=== PATIENT | female | born 1940 | race Caucasian/White ===

== ENCOUNTER 2023-04-13 10:42 | Outpatient (REF) | payer SELFPAY | END 2023-04-13 10:43 | disposition home or self-care (01) | LOC: HO.HAP 10:42 | PROVIDERS: Visit Provider Internal Medicine | DX: Z13.89 Encounter for screening for other disorder (principal) ==

== ENCOUNTER 2023-04-13 10:59 | Outpatient (REF) | payer SELFPAY | END 2023-04-13 11:00 | disposition home or self-care (01) | LOC: HO.HAP 10:59 | PROVIDERS: Visit Provider Internal Medicine | DX: Z13.89 Encounter for screening for other disorder (principal) ==

== ENCOUNTER 2023-04-22 08:46 | Outpatient (REF) | payer SELFPAY | END 2023-04-22 08:47 | disposition home or self-care (01) | LOC: HO.HAP 08:46 | PROVIDERS: Visit Provider Internal Medicine | DX: Z13.89 Encounter for screening for other disorder (principal) ==

== ENCOUNTER 2024-08-11 11:57 | Outpatient (REF) | payer SELFPAY | END 2024-08-11 11:58 | disposition home or self-care (01) | LOC: HO.HAP 11:57 | PROVIDERS: Visit Provider Internal Medicine | DX: Z13.89 Encounter for screening for other disorder (principal) ==

== ENCOUNTER 2024-11-16 11:02 | Outpatient (REF) | payer SELFPAY | END 2024-11-16 11:03 | disposition home or self-care (01) | LOC: HO.HAP 11:02 | PROVIDERS: Visit Provider Physician Assistant Medical | DX: Z13.89 Encounter for screening for other disorder (principal) ==

== ENCOUNTER 2025-09-22 12:06 | Outpatient (REF) | payer SELFPAY | END 2025-09-22 12:07 | disposition home or self-care (01) | LOC: HO.HAP 12:06 | PROVIDERS: Visit Provider Internal Medicine | DX: Z13.89 Encounter for screening for other disorder (principal) ==

== ENCOUNTER 2025-10-10 10:04 | Outpatient (REF) | payer SELFPAY ==
--- OUTSIDE RECORDS SUMMARY | 2025-10-10 11:22 | XMS_ITS ---
Author Name [facility] Organization Unknown History of Medication Use Medication Directions Dispensed Refills Start Date End Date Stat solifenacin (VESICARE) 5 mg tablet Take 1 tablet (5 mg total) by mouth 1 (one) time each day. Swallow tablet whole; do not crush, chew, or split. 03/13/2025 active simvastatin (ZOCOR) 20 mg tablet TAKE 1 TABLET BY MOUTH AT BEDTIME 12/16/2024 active omeprazole (PriLOSEC) [address] capsule TAKE 1 CAPSULE BY MOUTH DAILY 11/29/2024 active Myrbetriq 50 mg tablet extended release 24 hr 24 hr tablet Take 1 tablet (50 mg total) by mouth 1 (one) time each day. 11/16/2024 active donepeziL (ARICEPT) 10 mg tablet TAKE 1 TABLET BY MOUTH AT BEDTIME 10/12/2024 active Stimulant Laxative Plus 8.6-50 mg per tablet Take 1 tablet by mouth 2 (two) times a day if needed. 01/11/2024 active fluticasone propionate (FLONASE) 50 mcg/actuation nasal spray Administer 2 sprays into each nostril 1 (one) time each day. 01/04/2024 active acetaminophen (TYLENOL) 500 mg tablet Take 1 tablet (500 mg total) by mouth. 12/15/2023 active ibuprofen (ADVIL,MOTRIN) 800 mg tablet Take 1 tablet (800 mg total) by mouth every 8 (eight) hours if needed. 12/15/2023 active polyethylene glycol (PEG) 17 gram/dose oral powder Take 17 g by mouth 1 (one) time. 12/15/2023 active betamethasone, augmented, (DIPROLENE-AF) 0.05 % cream Apply to affected areas up to twice a day sparingly. Do not use this medication for more than 2 weeks straight. 01/19/2023 active aspirin 81 mg EC tablet Take 81 mg by mouth daily. active calcium carbonate (CALCIUM ORAL) Take by mouth. active cholecalciferol (VITAMIN D-3) 25 mcg (1,000 unit) tablet Take 1,000 Units by mouth daily. active docusate sodium (COLACE) 100 mg capsule Take 1 capsule (100 mg total) by mouth 2 (two) times a day. active Allergies Allergen Reaction Severity Comment Documented Date Source Statu s CEFAZOLIN 09/22/2017 [facility] active Problems Problem Status Onset Date Problem Type Date of Resoluti on Source Mixed hyperlipidemia active 2006-12-23 ProblemAct [facility] Vaginal enterocele active 2019-06-23 ProblemAct [facility] Mild vascular dementia ([facility] V24, [facility] V28) active 2023-01-19 ProblemAct [facility] Vulvar abscess active 2019-11-15 ProblemAct [facility] Subjective memory complaints active 2022-07-09 ProblemAct [facility] Large hiatal hernia active 2022-07-10 ProblemAct [facility] Osteoporosis active 2018-10-14 ProblemAct [facility] Breast cancer ([facility] V24, [facility] V28) active 2015-05-10 ProblemAct [facility] Esophageal reflux active 2005-10-16 ProblemAct [facility] Eczema active 2023-01-19 ProblemAct [facility] Medical orders for life-sustaining treatment ([facility]) form in chart active 2025-01-17 ProblemAct [facility] Alopecia areata totalis active 2013-02-22 ProblemAct [facility] Pain in joint, ankle and foot active 2005-10-16 ProblemAct [facility] Immunizations Vaccine Date Source Lot Number Status Pneumococcal conjugate 20 va lent (Prevnar 20, PCV 20) 2mo and older 01/17/2025 [facility] [id number] comple lucila Tdap Tetanus diptheria acell ular pertussis (Boostrix; Adacel) 7yo and older 01/17/2025 [facility] [id number] completed Influenza trivalent, 0.5mL ( Fluad) 65yo and older 08/23/2024 [facility] [id number] completed Influenza trivalent, 0.5mL ( Fluad) 65yo and older 11/19/2023 [facility] [id number] completed Influenza trivalent, 0.5mL ( Fluad) 65yo and older 09/22/2023 [id number] completed Influenza trivalent, 0.5mL ( Fluad) 65yo and older 09/02/2022 [facility] [id number] completed Influenza trivalent, 0.5mL ( Fluad) 65yo and older 09/30/2021 [facility] [id number] completed Moderna SARS-CoV-2 COVID-19, mRNA, LNP-S, preservative free 09/30/2021 [facility] [id number] completed Moderna SARS-CoV-2 COVID-19, mRNA, LNP-S, preservative free 01/09/2021 [facility] [id number] completed Moderna SARS-CoV-2 COVID-19, mRNA, LNP-S, preservative free 12/12/2020 [facility] [id number] completed Influenza trivalent, 0.5mL, preservative free (Fluarix; FluLaval; Fluzone) ages 6mo and older (Afluria) 3 years and older 07/19/2020 [facility] [id number] completed Influenza trivalent, 0.5mL ( Fluad) 65yo and older 09/08/2019 [facility] [id number] completed Influenza trivalent, 0.5mL ( Fluad) 65yo and older 07/23/2018 [facility] [id number] completed Influenza Quadravalent, MDCK , 0.5ml, with preservative (Flucelvax) 6mo and older 08/23/2017 [facility] [id number] completed Influenza trivalent, 0.5mL, preservative free (Fluarix; FluLaval; Fluzone) ages 6mo and older (Afluria) 3 years and older 09/11/2016 [facility] [id number] completed Pneumococcal conjugate 13 va lent (Prevnar 13, PCV13) 2mo and older 05/22/2016 [facility] [id number] complet ed Influenza trivalent, 0.5mL, preservative free (Fluarix; FluLaval; Fluzone) ages 6mo and older (Afluria) 3 years and older 07/18/2015 [facility] [id number] completed Influenza trivalent, 0.5mL, preservative free (Fluarix; FluLaval; Fluzone) ages 6mo and older (Afluria) 3 years and older 08/16/2014 [facility] [id number] completed Influenza trivalent, 0.5mL, preservative free (Fluarix; FluLaval; Fluzone) ages 6mo and older (Afluria) 3 years and older 08/09/2013 [facility] [id number] completed Influenza trivalent, 0.5mL, preservative free (Fluarix; FluLaval; Fluzone) ages 6mo and older (Afluria) 3 years and older 08/22/2012 [facility] [id number] completed Zoster Live 08/18/2011 [facility] [id number] completed Influenza trivalent, 0.5mL, preservative free (Fluarix; FluLaval; Fluzone) ages 6mo and older (Afluria) 3 years and older 08/08/2011 [facility] [id number] completed Influenza trivalent, 0.5mL, preservative free (Fluarix; FluLaval; Fluzone) ages 6mo and older (Afluria) 3 years and older 08/15/2010 [facility] [id number] completed H1N1 Inj Preservative Free 12/07/2009 [facility] [id number] completed Influenza trivalent, 0.5mL, preservative free (Fluarix; FluLaval; Fluzone) ages 6mo and older (Afluria) 3 years and older 08/07/2009 [facility] [id number] completed Influenza trivalent, 0.5mL, preservative free (Fluarix; FluLaval; Fluzone) ages 6mo and older (Afluria) 3 years and older 08/30/2008 [facility] [id number] completed Influenza trivalent, 0.5mL, preservative free (Fluarix; FluLaval; Fluzone) ages 6mo and older (Afluria) 3 years and older 08/29/2007 [facility] [id number] completed Pneumococcal polysaccharide 23 valent (Pneumovax 23) 2yo and older 11/18/2006 [facility] [id number] com pleted Td Tetanus diptheria (Tdvax) 7yo and older 11/18/2006 [facility] [id number] completed Influenza trivalent, 0.5mL, preservative free (Fluarix; FluLaval; Fluzone) ages 6mo and older (Afluria) 3 years and older 10/20/2006 [facility] [id number] completed Influenza trivalent, 0.5mL, preservative free (Fluarix; FluLaval; Fluzone) ages 6mo and older (Afluria) 3 years and older 09/02/2005 [facility] completed Td Tetanus diptheria (Tdvax) 7yo and older 11/09/1994 [facility] completed Care Team Organization Name Specialty Phone Email Start Date End Da herve [facility] ACO 06/28/2025 [facility] Dixon Pastrana [facility] 09/16/2022
--- OUTSIDE RECORDS SUMMARY | 2025-10-10 11:22 | XMS_ITS | Encounter Summary ---
Author Organization [facility] Address [address] [place] [address] Care Team Providers Care Male Model Name Role Phone Dixon Pastrana Primary Care Provider [phone] Reason for Referral * Consultation (Routine) - Closed Specialty Diagnoses / Procedures Referred By Contriley t Referred To Contact Ophthalmology Diagnoses Nonexudative age-related macular degeneration, right eye, stage unspecified Dixon Pastrana PA [address] [place] [address] Phone: tel: fax: Lars Guardado MD [address] [place] [address] Phone: tel: fax: Referral ID Status Reason Start Date Expiration Date V isits Requested Visits Authorized [id number] Closed Specialty Services Required 09/11/2025 09/11/2026 6 6 Reason for Visit * Reason Onset Date Comments Referral 09/11/2025 Ophthalmology Encounter Details Date Type Department Care Team (Late st Contact Info) Description 09/11/2025 Telephone Adult Medicine [address] [phone] Dixon Pastrana PA [address] [place] [address] Social History Tobacco Use Types Packs/Day Years Used Date Smoking Tobacco: Former Smokeless Tobacco: Never Alcohol Use Standard Drinks/Week Comments No 0 (1 standard drink = 0.6 oz pur e alcohol) Housing Instability Answer Date Recorde d Are you worried that in the next 2 months you may not have stable housing? No 08/18/2025 Food Access & Nutrition Answer Date Rec orded Do you have access to a vari ety of food including fruits and vegetables? Yes 08/18/2025 Health Literacy Answer Date Recorded How often do you need to hav e someone help you when you read instructions, pamphlets, or other written material from your doctor or pharmacy? Never 08/18/2025 Caregiver: How often do you need to have someone help you when you read instructions, pamphlets, or other written material from your doctor or pharmacy? Not on file 08/18/2025 Financial Risk Answer Date Recorded How hard is it for you to pa y for the very basics like food, housing, medical care, and air conditioning / heating? Not very hard 08/18/2025 Transportation Answer Date Recorded Has the lack of transportati on kept you from meetings, work, or from getting things needed for daily living? No Has the lack of transportati on kept you from medical appointments or from getting medications? No 08/18/2025 Social Isolation Answer Date Recorded How often do you feel lonely or isolated from th ose around you? Never 08/18/2025 Food Risk Answer Date Recorded Within the past 12 months we worried whether our food would run out before we got money to buy more. Never true 08/18/2025 Within the past 12 months th e food we bought just didn't last and we didn't have money to get more. Never true 08/18/2025 Dependent Care Answer Date Recorded Do you need help finding or paying for care for your loved ones. For example, child and family counselor or elderly care for an older adult? No 08/18/2025 Education Answer Date Recorded Do you think completing more education or training, like finishing a GED, going to college, or learning a trade, would be helpful for you? N/A 08/18/2025 Employment and Income Answer Date Recor ded During the last four weeks, have you been actively looking for work? No 08/18/2025 Living Situation Answer Date Recorded What is your living situation? Unrecognized valu e 08/18/2025 Comments No Sex and Gender Information Value Date Recorded Sex Assigned at Not on file Legal Sex Female 5:20 PM EST Gender Identity Not on file Sexual Orientation Not on file documented as of this encounter Progress Notes * Piedad Caldera - 09/11/2025 9:08 AM EST What insurance does the patient have today? Payor: [facility] Referrals cannot be processed if the insurance is not accurate. If the insurance listed above is NO BILLING INFORMATION FOUND FOR THIS ENCOUNTER then the patients correct insurance must be obtainedand registered in [facility] or their referral can not be processed. Name of person calling to request this referral? Minerva from [facility] Referred To Provider (Include first and last name): Lars Guardado MD NPI (if known): [id number] Order/Specialty requested Ophthalmology Chief Complaint (Note: This is not a body part or a procedure): H35.3110 Has the patient seen provider for this problem/Dx before? yes Referred To Provider Address: [address] [place] [address] Referred To Provider Referred To Provider Does patient have an appointment scheduled?: yes If yes, what is the date of the appointment?: 09/11/25 Is this a retro request? no Number of visits requested: 6 Is this appointment related to: MVA or worker compensation? no Copied from [facility] #[id number]. Topic: Referral - Request >> Sep 11, 2025 9:03 AM Piedad Lai wrote: Telephone Incoming Contact name: Minerva from [facility] Telephone:[phone] Outcome: contacted Comments: Minerva from [facility] called today asking for a auth to be submitted for a Ophthalmology visit that the patient has for today. documented in this encounter Plan of Treatment Upcoming Encounters Date Type Department Care Team (Late st Contact Info) Description 01/16/2026 10:00 AM EDT Office Visit Adult [address] [address] Dixon Pastrana PA [address] [place] [phone] Scheduled Referrals Name Type Priority Associated Diagnoses Order Schedule Ambulatory referral to Ophthalmology Outpatient Referral Routine Nonexudative age-related macular degeneration, right eye, stage unspecified 1 Occurrences starting 09/11/2025 until 09/11/2026 documented as of this encounter Visit Diagnoses Diagnosis Nonexudative age-related macular degeneration, right eye, stage unspecified- Primary documented in this encounter Additional Health Concerns Assessment Noted Time PHQ-9 Depression Total Score: 0 01/18/20 25 11:58 AM EDT documented as of this encounter Care Teams Male Model Relationship Specialty Start Date End Date Dixon Pastrana PA [address] [place] [address] PCP - General Internal Medicine 04/26/21 documented as of this encounter
--- OUTSIDE RECORDS SUMMARY | 2025-10-10 11:22 | XMS_ITS | Clinical Summary ---
Author Organization [facility] Address [address] [place] [address] Care Team Providers Care Metal Hanging Supervisor Name Role Phone Dixon Pastrana PA-C Primary Care Provider Allergies Active Allergy Reactions Criticality Noted Date Comments Cefazolin 09/22/2017 Medications Medication Sig Dispensed Refills Start Date End Date Status aspirin EC 81 MG tablet Take 81 mg by mouth daily. 0 Active simvastatin (ZOCOR) tablet 20 mg Take 20 mg by mouth every night at bedtime. 0 Active omeprazole (PRILOSEC) 20 MG capsule Take 20 mg by mouth daily. 0 Active Multiple Vitamin (MULTI VITAMIN DAILY PO) Take by mouth. 0 Act keyon CALCIUM PO Take by mouth. 0 Active cholecalciferol (VITAMIN D3) 1000 units tablet Take 1,000 Units by mouth daily. 0 Active Active Problems No known active problems Family History Medical History Relation Name Comments Myocarditis Father Arthritis Maternal Grandmother Arthritis Mother COPD Mother Hyperlipidemia Sister 1 Hypertension Sister 1 Relation Name Status Comments Father Maternal Grandmother Mother Sister 1 Alive Sister 2 Alive Social History Tobacco Use Types Packs/Day Years Used Date Smoking Tobacco: Former Smokeless Tobacco: Never Alcohol Use Standard Drinks/Week Comments No 0 (1 standard drink = 0.6 oz pur e alcohol) Sex and Gender Information Value Date Recorded Sex Assigned at Not on file Gender Identity Not on file Sexual Orientation Not on file Job Start Date Occupation Industry Not on file Not on file Not on file Last Filed Vital Signs Vital Sign Reading Time Taken Comments Blood Pressure 130/67 02/08/2024 11:47 AM EDT Pulse 76 02/08/2024 11:47 AM EDT Temperature 36.3 C (97.4 F) 02/08/2024 11:47 AM EDT Respiratory Rate - - Oxygen Saturation 99% 02/08/2024 11:47 AM EDT Inhaled Oxygen Concentration - - Weight 49 kg (108 lb) 02/08/2024 11:47 AM EDT Height 149.9 cm (4' 11 ) 02/08/2024 11:47 AM EDT Body Mass Index 21.81 02/08/2024 11:47 AM EDT Plan of Treatment Health Maintenance Due Date Last Done Comments COVID-19 Vaccine (#1) 04/13/1941 Depression Screening 1951 Preventative Health Evaluation 1957 Shingrix-Zoster Vaccine (1 of 2) 1989 Fall Risk Assessment 2004 Osteoporosis Screening (DEXA Scan) 2004 DTap / Tdap / Td (1 - Tdap) 11/19/2006 11/18/2006, 0 11/09/1994 RSV Adult > 60+ Yrs or (1 - 1-dose 75+ series) 2014 Influenza Vaccine (#1) 2025 , 09/02/2022, 09/30/2021, Additional history exists Pneumococcal Vaccine Completed 05/22/2016, 11/18/19 07 Hepatitis B Vaccines Aged Out No long er eligible based on patient's age to complete this topic RSV Ped < 20 months Aged Out No longe r eligible based on patient's age to complete this topic Care Teams Metal Hanging Supervisor Relationship Specialty Start Date End Date Dixon Pastrana PA-C PCP - General Medical Services 03/03/23
--- OUTSIDE RECORDS SUMMARY | 2025-10-10 11:22 | XMS_ITS | Clinical Summary ---
Author Organization [facility] [address] [place] [address] [place] [phone] Phone Care Team Providers Care Manager Video Name Role Phone Dixon Pastrana Primary Care Provider [phone] Allergies Active Allergy Reactions Criticality Noted Date Comments Cefazolin 09/22/2017 Medications aspirin 81 mg EC tablet Take 81 mg by mouth daily. Active calcium carbonate (CALCIUM ORAL) Take by mouth. Active cholecalcifero l (VITAMIN D-3) 25 mcg (1,000 unit) tablet Take 1,000 Units by mouth daily. Active multivitamin (MULTIPLE VITAMINS ORAL) Take by mouth. Active acetaminophen (TYLENOL) 500 mg tablet Take 1 tablet (500 mg total) by mouth. 12/15/19 24 Active betamethasone, augmented, (DIPROLENE-AF) 0.05 % cream Apply to affected areas up to twice a day sparingly. Do not use this medication for more than 2 weeks straight. 01/20/20 23 Active fluticasone propionate (FLONASE) 50 mcg/actuation nasal spray Administer 2 sprays into each nostril 1 (one) time each day. 01/04/20 24 Active ibuprofen (ADVIL,MOTRIN) 800 mg tablet Take 1 tablet (800 mg total) by mouth every 8 (eight) hours if needed. 12/15/19 24 Active polyethylene glycol (PEG) 17 gram/dose oral powder Take 17 g by mouth 1 (one) time. 12/15/19 24 Active simvastatin (ZOCOR) 20 mg tablet TAKE 1 TABLET BY MOUTH AT BEDTIME 90 tablet 1 12/16/19 25 Active omeprazole (PriLOSEC) [address] capsule TAKE 1 CAPSULE BY MOUTH DAILY 90 capsule 05/26/20 25 Active donepeziL (ARICEPT) 10 mg tablet TAKE 1 TABLET BY MOUTH AT BEDTIME 90 tablet 1 06/12/20 25 Active Myrbetriq 50 mg 24 hr tablet Take 1 tablet (50 mg total) by mouth 1 (one) time each day. 90 each 1 07/18/20 25 Active solifenacin (VESICARE) 5 mg tablet Take 1 tablet (5 mg total) by mouth 1 (one) time each day. Swallow tablet whole; do not crush, chew, or split. 90 tablet 1 07/18/20 25 Active losartan (Cozaar) 25 mg tablet Take 1 tablet (25 mg total) by mouth 1 (one) time each day. 30 each 5 08/18/20 25 Active docusate sodium (COLACE) 100 mg capsule Take 1 capsule (100 mg total) by mouth 2 (two) times a day if needed for constipation. 60 capsule 5 09/14/20 25 Active docusate sodium (COLACE) 100 mg capsule Take 1 capsule (100 mg total) by mouth 2 (two) times a day. 025 Discontinued(Re order) Stimulant Laxative Plus 8.6-50 mg per tablet Take 1 tablet by mouth 2 (two) times a day if needed. 01/11/20 24 025 Discontinued(Th erapy completed) docusate sodium (COLACE) 100 mg capsule Take 1 capsule (100 mg total) by mouth 2 (two) times a day if needed for constipation. 60 capsule 1 09/14/20 25 025 Discontinued Active Problems Problem Noted Date Diagnosed Date Medical orders for life-sust aining treatment (MOLST) form in chart 01/17/2025 Overview (01/17/2025): MOLST form completed 01/17/2025 Cardiopulmonary resuscitation - attempt resuscitation Ventilation for a patient in respiratory distress - use noninvasive ventilation (CPAP) Transfer to hospital -transfer to hospital Dialysis - undecided Artificial nutrition - no artificial nutrition Artificial hydration - use artificial nutrition but short term only Eczema 01/19/2023 Mild vascular dementia (CMS/HCC V24, CMS/HCC V28 ) 01/19/2023 Assessment & Plan (01/17/2025 12:58 PM EDT): Orders: Lipid panel with reflex to direct LDL; Future Comprehensive metabolic panel; Future CBC and differential; Future Culture urine; Future Urinalysis with reflex microscopic; Future Hemoglobin A1c; Future Large hiatal hernia 07/10/2022 Assessment & Plan (01/17/2025 12:58 PM EDT): Orders: Lipid panel with reflex to direct LDL; Future Comprehensive metabolic panel; Future CBC and differential; Future Culture urine; Future Urinalysis with reflex microscopic; Future Hemoglobin A1c; Future Subjective memory complaints 07/09/2022 Vulvar abscess 11/15/2019 Overview (10/05/2024): Last Assessment & Plan: Expressed today. Encouraged pt to soak BID to complete healing. Will return in 2-3 weeks or sooner prn worsening. Will use Tylenol or ibuprofen for pain. Vaginal enterocele 06/23/2019 Overview (10/05/2024): Last Assessment & Plan: Reviewed findings and possible therapies including observation, pessary and surgical consultation. She was most interested in observation at this time and will call if it is bothering her more. US ordered to confirm nothing abnormal given rapid onset of symptoms. Osteoporosis 10/14/2018 Breast cancer ([facility] V24, [facility] V28) 015 Alopecia areata totalis 02/22/2013 Mixed hyperlipidemia 12/23/2006 Assessment & Plan (01/17/2025 12:58 PM EDT): Orders: Lipid panel with reflex to direct LDL; Future Comprehensive metabolic panel; Future CBC and differential; Future Culture urine; Future Urinalysis with reflex microscopic; Future Hemoglobin A1c; Future Esophageal reflux 10/16/2005 Overview (10/05/2024): Hiatal herniaHiatal hernia on upper gi in 2002; upper GI endoscopy 3.07, performed after initiation of treatment with omeprazole, no esophagitis, no Thorpe's esophagus, no stricture. Moderately large hiatal hernia. CAT scan 2017 confirms large hiatal hernia Pain in joint, ankle and foot 10/16/2005 Overview (10/05/2024): rt ankle fx nov 2004 Encounters Date Type Department Care Team Description 10/06/2025 Results Follow-Up Adult Medicine [address] [phone] Dixon Pastrana PA 10/03/2025 2:00 PM EST Ancillary Procedure [facility] [address] [place] [address] Syncope, unspecified syncope type 09/14/2025 10:00 AM EST Office Visit [address] [phone] Paris Samaniego PA Syncope, unspecified syncope type (Primary Dx); Constipation, unspecified constipation type; Hypertension, unspecified type; Need for prophylactic vaccination and inoculation against influenza 09/11/2025 Telephone Adult Medicine [address] [phone] Dixon Pastrana PA 08/24/2025 Telephone Adult Medicine [address] [phone] Dixon Pastrana PA 08/21/2025 Telephone Adult [address] [phone] Dixon Pastrana PA 08/20/2025 1:18 PM EDT - 08/20/2025 5:53 PM EDT Emergency [facility] Emergency [address] [place] [address] Julio C Miller MD Syncope, unspecified syncope type (Primary Dx) Discharge Disposition: Home or Self Care 08/18/2025 8:30 AM EDT Office Visit Adult [address] [phone] Paris Samaniego PA Mixed hyperlipidemia (Primary Dx); Gastroesophageal reflux disease without esophagitis; 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 (CMS/HCC V24, CMS/HCC V28); Urge incontinence; History of breast cancer; Elevated blood pressure reading 07/18/2025 11:45 AM EDT Office Visit Urogynecology [address] [phone] Payal Allen MD Cervical prolapse (Primary Dx); Urge incontinence; Urinary frequency; Urinary urgency; Nocturnal enuresis; Nocturia from Last 3 Months Immunizations Immunization Administration Dates Next Due H1N1 Inj Preservative Free 12/07/2009 Influenza Quadravalent, MDCK , 0.5ml, with preservative (Flucelvax) 6mo and older 08/23/2017 Influenza trivalent, 0.5mL ( Fluad) 65yo and older 09/14/2025,08/23/2024,11/19/2023,09/22,09/02/2022,09/30/2021,09/08/2019 ,07/23/2018 Influenza trivalent, 0.5mL, preservative free (Fluarix; FluLaval; Fluzone) ages 6mo and older (Afluria) 3 years and older 07/19/2020,09/11/2016,07/18/2015,08/16,08/09/2013,08/22/2012,08/08/2011 ,08/15/2010,08/07/2009,08/30/2008,08/10,10/20/2006,09/02/2005 Moderna SARS-CoV-2 COVID-19, mRNA, LNP-S, preservative free 09/30/2021,01/09/2021,12/12/2020 Pneumococcal conjugate 13 va lent (Prevnar 13, PCV13) 2mo and older 05/22/2016 Pneumococcal conjugate 20 va lent (Prevnar 20, PCV 20) 2mo and older 01/17/2025 Pneumococcal polysaccharide 23 valent (Pneumovax 23) 2yo and older 11/18/2006 Td Tetanus diptheria (Tdvax) 7yo and older 11/18/2006,11/09/1994 Tdap Tetanus diptheria acell ular pertussis (Boostrix; Adacel) 7yo and older 01/17/2025 Zoster Live 08/18/2011 Surgical History Surgery Date Site/Laterality Comments BREAST LUMPECTOMY PROCEDURE:BREAST LUMPECTOMY APPENDECTOMY PROCEDURE:APPENDECTOMY TONSILLECTOMY PROCEDURE:TONSILLECTOMY TONSILLECTOMY PROCEDURE: HISTORICAL TONSILLECTOMY APPENDECTOMY PROCEDURE: UT APPENDECTOMY BREAST LUMPECTOMY PROCEDURE: ---- BREAST LUMP BIOPSY ----; COMMENT: breast cancer BREAST SURGERY 04/06/2015 Right PROCEDURE: UT UNLISTED PROCEDURE BREAST; COMMENT: lumpectomy x2 one week apart DCIS CATARACT EXTRACTION Bilateral PROCEDURE: HISTORICAL CATARACT REMOVAL OTHER SURGICAL HISTORY 12/29/2018 Left PROCEDURE: UT RPR SPIGELIAN HERNIA; COMMENT: laparoscopic OTHER SURGICAL HISTORY 03/21/2024 PROCEDURE: UT COLPOSCOPY CERVIX UPPR/ADJCNT VAGINA W/CERVIX BX; COMMENT: Hysteropexy, colorrhaphy for incontinence Dr. Allen Medical History Medical History Date Comments Breast cancer ([facility] V24, [facility] V28) DX:Breast cancer ([facility]) Osteopenia DX:Osteopenia GERD (gastroesophageal reflu x disease) DX:GERD (gastroesophageal re flux disease) Other psoriasis and similar disorders 10/16/2005 DX:Other psoriasis and similar disorders Esophageal reflux 10/16/2005 DX:Esophageal reflux; COMMENT: hiaatal hernia upper gi in 2002 showed reflux Special screening for malign ant neoplasms, colon 12/17/2006 DX:Special screening for mal ignant neoplasms, colon; COMMENT: Negative colonoscopy 2003, no colon cancer screening needed for 10 years. Osteopenia 01/25/2009 DX:Osteopenia Fracture of ankle 2004 DX:Fracture of ankle; COMMENT: right Rotator cuff tear 2004 DX:Rotator cuf f tear; COMMENT: small supraspinatus tear on right MRI Scoliosis of thoracic spine DX:S coliosis of thoracic spine Alopecia areata totalis 02/22/2013 DX:Alope nubia areata totalis Breast cancer ([facility] V24, [facility] V28) 05/10/2015 DX:Breast cancer ([facility]); COMM ENT: DCIS Breast cancer ([facility] V24, [facility] V28) 05/10/2015 DX:Breast cancer ([facility]) Osteoporosis 10/14/2018 DX:Osteoporosis Hiatal hernia DX:Hiatal hernia Family History Medical History Relation Name Comments Myocarditis Father Arthritis Maternal Grandmother Arthritis Mother COPD Mother Hyperlipidemia Sister 1 Hypertension Sister 1 Colon cancer Neg Hx Relation Name Status Comments Father (Age 54) mi Maternal Grandmother Mother (Age 74) copd Sister 1 Alive Sister 2 Alive Sister 3 Alive Agnieszka, HTN, smo kes, hyperlipidemia as of 02/2012 Sister 4 (Age 70) Nancy, y ounger, drugs & Etoh Social History Tobacco Use Types Packs/Day Years Used Date Smoking Tobacco: Former Smokeless Tobacco: Never Tobacco Cessation:Counseling Given: Not Answered Alcohol Use Standard Drinks/Week Comments No 0 [...] care for your loved ones. For example, childcare center director or elderly care for an older adult? [...] on file Sexual Orientation Not on file Obstetrics History Last Filed Vital Signs Vital Sign Reading Time Taken Comments Blood Pressure 128/69 09/14/2025 10:02 AM EST Pulse 67 09/14/2025 10:02 AM EST Temperature 36.2 C (97.1 F) 09/14/2025 10:02 AM EST Respiratory Rate 15 09/14/2025 10:02 AM EST Oxygen Saturation 99% 09/14/2025 10:02 AM EST Inhaled Oxygen Concentration - - Weight 50.3 kg (111 lb) 09/14/2025 10:02 AM EST Height 152.4 cm (5') 09/14/2025 10:02 AM EST Body Mass Index 21.68 09/14/2025 10:02 AM EST Plan of Treatment Upcoming Encounters Date Type Department Care Team (Late st Contact Info) Description 01/16/2026 10:00 AM EDT Office Visit Adult Medicine [address] [phone] Dixon Pastrana PA [address] [place] [phone] Health Maintenance Due Date Last Done Comments Zoster Vaccines (1 of 2) 2011 08/18/2011 RSV Immunization Adult Patients (1 - 1-dose 75+ series) 2014 Cholesterol Screening (Lipid Panel) 10/17/2022 COVID-19 Vaccine ( season) 2025 12/10/2023, 02/10/2022, 09/30/2021, Additional history exists Falls Risk Assessment 01/17/2026 01/17/2025 Medicare Annual Wellness Visit 01/17/2026 01/17/2025 Social Influencers of Health Screening 08/18/2026 08/18/2025 Hypertension/CHF/CAD Annual BMP Blood Test 08/20/2026 08/20/2025, 03/09/2024 Osteoporosis Screening (Bone Density Screening) 09/27/2028 09/27/2018 DTaP,Tdap,and Td Vaccines (4 - Td or Tdap) 01/17/2035 01/17/2025, 11/18/2006, 11/09/1994 Pneumococcal Vaccine: 50+ Years Completed 01/17/2025, 05/22/2016, 11/18/2006 Depression Screening Completed 09/14/2025 Influenza Vaccine Completed 09/14/2025, , 11/19/2023, Additional history exists HIB Vaccines Aged Out No longer eligi ble based on patient's age to complete this topic HPV Vaccines Aged Out No longer eligi ble based on patient's age to complete this topic Hepatitis A Vaccines Aged Out No long er eligible based on patient's age to complete this topic Hepatitis B Vaccines Aged Out No long er eligible based on patient's age to complete this topic IPV Vaccines Aged Out No longer eligi ble based on patient's age to complete this topic MMR Vaccines Aged Out No longer eligi ble based on patient's age to complete this topic Meningococcal ACWY Vaccine Aged Out N o longer eligible based on patient's age to complete this topic Meningococcal B Vaccine Aged Out No l onger eligible based on patient's age to complete this topic RSV Immunization Patients Under 20 months Aged Out No longer eligible based on patient's age to complete this topic Varicella Vaccines Aged Out No longer eligible based on patient's age to complete this topic Procedures Procedure Name Priority Date/Time Associated Diagnosis Comments CARDIAC HOLTER MONITOR (REPORT GENERATED IN HOUSE) Routine 10/03/2025 1:44 PM EST Syncope, unspecified syncope type ECG ANNOTATED 08/22/2025 XR CHEST 2 VIEWS STAT 08/20/2025 3:[address] HEAD WO CONTRAST STAT 08/20/2025 3 :36 PM EDT HERNANDEZ URINE CULTURE TUBE STAT 08/20/2025 2:33 PM EDT URINALYSIS WITH REFLEX MICROSCOPIC AND CULTURE STAT 08/20/2025 2:33 PM EDT URINALYSIS WITH REFLEX MICROSCOPIC AND CULTURE STAT 08/20/2025 2:33 PM EDT CULTURE URINE STAT 08/20/2025 2:33 PM EDT CBC WITH AUTO DIFFERENTIAL STAT 08/20/2025 1:56 PM EDT PROTHROMBIN TIME WITH INR STAT 08/20/2025 1:56 PM EDT ACTIVATED PARTIAL THROMBOPLASTIN TIME STAT 08/20/2025 1:56 PM EDT B-TYPE NATRIURETIC PEPTIDE STAT 08/20/2025 1:56 PM EDT COMPREHENSIVE METABOLIC PANEL STAT 08/20/2025 1:56 PM EDT TROPONIN I HIGH SENSITIVITY Timed 08/20/2025 1:56 PM EDT MAGNESIUM STAT 08/20/2025 1:56 PM EDT CBC AND DIFFERENTIAL STAT 08/20/2025 1:56 PM EDT ECG 12-LEAD STAT 08/20/2025 1:46 PM EDT DXA BONE DENSITY STUDY 1+ SITS AXIAL SKEL Routine 09/27/2018 1:31 PM EST Other specified disorders of bone density and structure, unspecified site from Last 3 Months or Most Recently Relevant to Health Maintenance Results * CARDIAC HOLTER MONITOR (REPORT GENERATED IN HOUSE) (10/03/2025 1:44 PM EST) Anatomical Region Laterality Modality Cardiac Diagnost ic Narrative 10/04/2025 4:57 PM EST [facility]PART[facility] [address] [facility], [id number], [place] [address] TEL: FAX: Type of test: 24 hour Holter Monitor Date of test: 10/03/25 Ordering provider: SOLOMON Huston Reason for Test: Syncope PVCA Grain Elevator Worker Findings: 1: The predominant rhythm was Normal Sinus Rhythm. 2: Occasional PACs with one atrial pair. Rare PVCs with two couplets. 3: No pauses noted. Longest R-R 1.5 sec. 4: Diary returned with no entries. 5: Leads disconnected at 5:44 am. Total time recorded was 16 hrs 3 mins. Impression: Normal sinus rhythm with no significant atrial or ventricular arrhythmias. No excessive bradycardia or pauses noted. [place] [facility] PROCEDURES F inal Result * ECG-Annotated (08/22/2025) Provider Onbase MD ECG ORDERABLES Final Result * XR Chest 2 Views (08/20/2025 3:49 PM EDT) Anatomical Region Laterality Modality Body Radiographic Eunice ging 08/20/2025 4:29 PM EDT Impressions 08/20/2025 4:32 PM EDT FINDINGS/IMPRESSION: No pneumonia or pulmonary edema. No pleural effusion or pneumothorax. Cardiac silhouette is normal in size. Hiatal hernia. Severe dextroconvex thoracic scoliosis. No acute displaced fracture. -------- FINAL REPORT -------- Dictated By: JOSÉ COBSO Dictated Date: 08/20/2025 16:29 ET Assigned Physician: JOSÉ COBOS Reviewed and Electronically Signed By: JOSÉ COBOS Signed Date: 08/20/2025 16:32 ET Workstation ID: [id number] Transcribed By: Self Edit Transcribed Date: 08/20/2025 16:29 ET Narrative 08/20/2025 4:32 PM EDT XR CHEST 2 VIEWS INDICATION: Chest pain TECHNIQUE: XR CHEST 2 VIEWS COMPARISON: 05/26/2022 Procedure Note José Cobos MD - 08/20/2025 XR CHEST 2 VIEWS INDICATION: Chest pain TECHNIQUE: XR CHEST 2 VIEWS COMPARISON: 05/26/2022 IMPRESSION: FINDINGS/IMPRESSION: No pneumonia or pulmonary edema. No pleural effusionor pneumothorax. Cardiac silhouette is normal in size. Hiatal hernia.Severe dextroconvex thoracic scoliosis. No acute displaced fracture. -------- FINAL REPORT -------- Dictated By: JOSÉ COBOS Dictated Date: 08/20/2025 16:29 ET Assigned Physician: JOSÉ COBOS Reviewed and Electronically Signed By: JOSÉ COBOS Signed Date: 08/20/2025 16:32 ET Workstation ID: [id number] Transcribed By: Self Edit Transcribed Date: 08/20/2025 16:29 ET Julio C Miller MD IMG XR PROCEDURES Final Result * CT Head wo Contrast (08/20/2025 3:36 PM EDT) Anatomical Region Laterality Modality Head and Neck Computed Tomogra phy 08/20/2025 4:09 PM EDT Impressions 08/20/2025 4:12 PM EDT No acute intracranial abnormality -------- FINAL REPORT -------- Dictated By: JOSÉ COBOS Dictated Date: 08/20/2025 16:09 ET Assigned Physician: JOSÉ COBOS Reviewed and Electronically Signed By: JOSÉ COBOS Signed Date: 08/20/2025 16:12 ET Workstation ID: [id number] Transcribed By: Self Edit Transcribed Date: 08/20/2025 16:09 ET Narrative 08/20/2025 4:12 PM EDT PROCEDURE: HEAD CT INDICATION: Altered mental status TECHNIQUE: CT of the head without intravenous contrast. Multiplanar reformats. The examination was performed utilizing dose reduction techniques. Total DLP 809 COMPARISON: 08/09/2024 FINDINGS: No acute territorial infarct, mass effect, or intracranial hemorrhage. Severe scattered periventricular and subcortical white matter hypodensities are most likely related to chronic small vessel ischemic change. Ventricles are stable in size. No hydrocephalus. Visualized paranasal sinuses and mastoid air cells are clear. No scalp hematoma or skull fracture. Bilateral lens implants. Procedure Note José Cobos MD - 08/20/2025 PROCEDURE: HEAD CT INDICATION: Altered mental status TECHNIQUE: CT of the head without intravenous contrast. Multiplanarreformats. The examination was performed utilizing dose reductiontechniques. Total DLP 809 COMPARISON: 08/09/2024 FINDINGS: No acute territorial infarct, mass effect, or intracranial hemorrhage. Severe scattered periventricular and subcortical white matterhypodensities are most likely related to chronic small vessel ischemicchange. Ventricles are stable in size. No hydrocephalus. Visualized paranasal sinuses and mastoid air cells are clear. No scalp hematoma or skull fracture. Bilateral lens implants. IMPRESSION: No acute intracranial abnormality -------- FINAL REPORT -------- Dictated By: JOSÉ COBOS Dictated Date: 08/20/2025 16:09 ET Assigned Physician: JOSÉ COBOS Reviewed and Electronically Signed By: JOSÉ COBOS Signed Date: 08/20/2025 16:12 ET Workstation ID: [id number] Transcribed By: Self Edit Transcribed Date: 08/20/2025 16:09 ET Julio C Miller MD [facility] [place]ED[place] Final Result * (ABNORMAL) Urinalysis with reflex microscopic and culture (08/20/2025 2:33 PM EDT) Pathologist [facility] Specific [place] Urine 1.014 1.003 - 1.030 LAB URINALYSIS - AUTOMATED METHOD 08/20/2025 4:10 PM [facility] pH, Urine 6.0 5.0 - 8.0 pH LAB URINALYSIS - AUTOMATED METHOD 08/20/2025 4:10 PM [facility] Leukocytes, Urine Trace(A) Negative LAB URINALYSIS - AUTOMATED METHOD 08/20/2025 4:10 PM [facility] Nitrite, Urine Negative Negative LAB URINALYSIS - AUTOMATED METHOD 08/20/2025 4:10 PM [facility] Protein, Urine Negative <=Trace mg/dL LAB URINALYSIS - AUTOMATED METHOD 08/20/2025 4:10 PM [facility] Glucose, Urine Negative Negative mg/dL LAB URINALYSIS - AUTOMATED METHOD 08/20/2025 4:10 PM [facility] Ketones, Urine Negative Negative mg/dL LAB URINALYSIS - AUTOMATED METHOD 08/20/2025 4:10 PM [facility] Urobilinogen, Urine 1.0 0.2 - 1.0 mg/dL LAB URINALYSIS - AUTOMATED METHOD 08/20/2025 4:10 PM [facility] Bilirubin, Urine Negative Negative LAB URINALYSIS - AUTOMATED METHOD 08/20/2025 4:10 PM [facility] Blood, Urine Negative Negative LAB URINALYSIS - AUTOMATED METHOD 08/20/2025 4:10 PM [facility] RBC, Urine 3.6 0 - 4 /HPF LAB URINALYSIS - AUTOMATED METHOD 08/20/2025 4:10 PM [facility] WBC, Urine 1.4 0 - 4 /HPF LAB URINALYSIS - AUTOMATED METHOD 08/20/2025 4:10 PM [facility] Squamous Epithelial, Urine 28 0 - 60 /LPF LAB URINALYSIS - AUTOMATED METHOD 08/20/2025 4:10 PM [facility] Bacteria, Urine Negative Negative /HPF LAB URINALYSIS - AUTOMATED METHOD 08/20/2025 4:10 PM [facility] Hyaline Casts, Urine 1.2 0 - 3 /LPF LAB URINALYSIS - AUTOMATED METHOD 08/20/2025 4:10 PM [facility] Urine Urine specimen obtained by clean catch procedure / Unknown Non-blood Collection / Unknown 08/20/2025 2:33 PM EDT 08/20/2025 3:24 PM EDT us Julio C Miller MD LAB URINE ORDERABLES Final Resul t Performing Organization Address City/[facility]/ZIP Co de Phone Number [facility] [address] [place] [address], [place] [phone] * Hernandez urine culture tube (08/20/2025 2:33 PM EDT) [facility] Extra Tube Hold for add-ons. 08/20/2025 5:[address] [facility] Comment:Auto resulted. Urine Urine specimen obtained by clean catch procedure / Unknown Non-blood Collection / Unknown 08/20/2025 2:33 PM EDT 08/20/2025 3:24 PM EDT us Julio C Miller MD LAB URINE ORDERABLES Final Resul t Performing Organization Address [facility] Co de Phone Number [facility] [address] [place] [address], [place] [phone] * Culture urine (08/20/2025 2:33 PM EDT) [facility] Culture, Urine 10,000-49,000 CFU/mL Mixed bacterial morphotypes present suggestive of possible contamination during collection. Suggest appropriate recollection if clinically indicated. 08/21/2025 1:[address] [facility] Urine Urine specimen obtained by clean catch procedure / Unknown Non-blood Collection / Unknown 08/20/2025 2:33 PM EDT 08/20/2025 4:10 PM EDT us Julio C Miller MD LAB MICROBIOLOGY - GENERAL ORDER MJ Final Result Performing Organization Address City/[facility]/ZIP Co de Phone Number [facility] [address] [place] [address], [place] [phone] * Troponin I high sensitivity (08/20/2025 1:56 PM EDT) [facility] High Sensitivity Troponin I 4 <=54 ng/L LAB CHEMISTRY METHOD 08/20/2025 2:[address] [facility] Blood Venous blood specimen / Unknown Venipuncture / Unknown 08/20/2025 1:56 PM EDT 08/20/2025 2:[address] [facility] - 08/20/2025 2:57 PM EDT High levels of biotin in samples may falsely decrease hsTroponin values. Use caution when interpreting hsTroponin results in patients taking biotin who exhibit renal impairment (eGFR <60) or in patients taking more than 20 mg/day of biotin. us Julio C Miller MD LAB BLOOD ORDERABLES Final Resul t [facility] [address] [place] [address], [place] [phone] * (ABNORMAL) CBC auto differential (08/20/2025 1:56 PM EDT) WBC 11.9(H) 4.8 - 10.8 K/mcL LAB HEMETOLOGY METHOD 08/20/2025 2:[facility] RBC 4.80 3.80 - 4.80 M/mcL LAB HEMETOLOGY METHOD 08/20/2025 2:[address] [facility] Hemoglobin 12.8 11.5 - 16.0 g/dL LAB HEMETOLOGY METHOD 08/20/2025 2:[address] [facility] Hematocrit 41.2 35.0 - 47.0 % LAB HEMETOLOGY METHOD 08/20/2025 2:[address] [facility] MCV 86.6 79.0 - 98.0 FL LAB HEMETOLOGY METHOD 08/20/2025 2:53 PM [facility] MCH 26.9(L) 27.0 - 32.0 pcg LAB HEMETOLOGY METHOD 08/20/2025 2:[address] [facility] MCHC 31.1(L) 32.0 - 37.0 g/dL LAB HEMETOLOGY METHOD 08/20/2025 2:[address] [facility] RDW 14.3 11.0 - 15.0 % LAB HEMETOLOGY METHOD 08/20/2025 2:[address] [facility] Platelets 258 130 - 400 K/mcL LAB HEMETOLOGY METHOD 08/20/2025 2:[address] [facility] MPV 11.1(H) 7.0 - 11.0 FL LAB HEMETOLOGY METHOD 08/20/2025 2:[address] [facility] NRBC 0.0 <1.0 % LAB HEMETOLOGY METHOD 08/20/2025 2:53 PM [facility] NRBC Absolute 0.00 <0.10 K/mcL LAB HEMETOLOGY METHOD 08/20/2025 2:53 PM [facility] Neutrophils Relative 73.1 % LAB HEMETOLOGY METHOD 08/20/2025 2:[address] [facility] Comment:This is an appended report. These results have been appended to a previously preliminary verified report. Lymphocytes Relative 9.9 % LAB HEMETOLOGY METHOD 08/20/2025 2:[address] [facility] Comment:This is an appended report. These results have been appended to a previously preliminary verified report. Monocytes Relative 15.3 % LAB HEMETOLOGY METHOD 08/20/2025 2:[address] [facility] Comment:This is an appended report. These results have been appended to a previously preliminary verified report. Eosinophils Relative 0.9 % LAB HEMETOLOGY METHOD 08/20/2025 2:[address] [facility] Comment:This is an appended report. These results have been appended to a previously preliminary verified report. Basophils Relative 0.5 % LAB HEMETOLOGY METHOD 08/20/2025 2:[address] [facility] Comment:This is an appended report. These results have been appended to a previously preliminary verified report. Immature Granulocytes Relative 0.3 % LAB HEMETOLOGY METHOD 08/20/2025 2:53 PM [facility] Comment:This is an appended report. These results have been appended to a previously preliminary verified report. Neutrophils Absolute 8.65(H) 1.50 - 7.00 K/mcL LAB HEMETOLOGY METHOD 08/20/2025 2:53 PM [facility] Comment:This is an appended report. These results have been appended to a previously preliminary verified report. Lymphocytes Absolute 1.18 1.00 - 5.00 K/mcL LAB HEMETOLOGY METHOD 08/20/2025 2:53 PM [facility] Comment:This is an appended report. These results have been appended to a previously preliminary verified report. Monocytes Absolute 1.82(H) 0.20 - 1.00 K/mcL LAB HEMETOLOGY METHOD 08/20/2025 2:53 PM [facility] Comment:This is an appended report. These results have been appended to a previously preliminary verified report. Eosinophils Absolute 0.11 0.00 - 0.50 K/mcL LAB HEMETOLOGY METHOD 08/20/2025 2:53 PM [facility] Comment:This is an appended report. These results have been appended to a previously preliminary verified report. Basophils Absolute 0.06 0.00 - 0.20 K/mcL LAB HEMETOLOGY METHOD 08/20/2025 2:53 PM [facility] Comment:This is an appended report. These results have been appended to a previously preliminary verified report. Immature Granulocytes Absolute 0.04(H) 0.00 - 0.03 K/mcL LAB HEMETOLOGY METHOD 08/20/2025 2:53 PM [facility] Comment:This is an appended report. These results have been appended to a previously preliminary verified report. Blood Venous blood specimen / Unknown Venipuncture / Unknown 08/20/2025 1:56 PM EDT 08/20/2025 2:21 PM EDT us Julio C Miller MD LAB BLOOD ORDERABLES Final Resul t Performing Organization Address City/[facility]/ZIP Co de Phone Number [facility] [address] [place] [address], [place] [phone] * APTT (08/20/2025 1:56 PM EDT) aPTT 27.8 24.1 - 39.3 sec LAB COAGULATION METHOD 08/20/2025 2:[address] [facility] Blood Venous blood specimen / Unknown Venipuncture / Unknown 08/20/2025 1:56 PM EDT 08/20/2025 2:21 PM EDT us Julio C Miller MD LAB BLOOD ORDERABLES Final Resul t Performing Organization Address [facility] Co de Phone Number [facility] [address] [place] [address], [place] [phone] * Protime-INR (08/20/2025 1:56 PM EDT) Protime 12.9 10.6 - 13.9 sec LAB COAGULATION METHOD 08/20/2025 2:[address] [facility] INR 1.0 LAB COAGULATION METHOD 08/20/2025 2:[address] [facility] Blood Venous blood specimen / Unknown Venipuncture / Unknown 08/20/2025 1:56 PM EDT 08/20/2025 2:21 PM EDT us Julio C Miller MD LAB BLOOD ORDERABLES Final Resul t Performing Organization Address City/[facility]/ZIP Co de Phone Number [facility] [address] [place] [address], [place] [phone] * B-type natriuretic peptide (08/20/2025 1:56 PM EDT) Pathologist [facility] BNP 36 <=100 pcg/mL LAB CHEMISTRY METHOD 08/20/2025 3:[address] [facility] Blood Venous blood specimen / Unknown Venipuncture / Unknown 08/20/2025 1:56 PM EDT 08/20/2025 2:21 PM EDT us Julio C Miller MD LAB BLOOD ORDERABLES Final Resul t Performing Organization Address City/[facility]/ZIP Co de Phone Number [facility] [address] [place] [address], [place] [phone] * Magnesium (08/20/2025 1:56 PM EDT) [facility] Magnesium 2.2 1.9 - 2.6 mg/dL LAB CHEMISTRY METHOD 08/20/2025 2:[address] [facility] Blood Venous blood specimen / Unknown Venipuncture / Unknown 08/20/2025 1:56 PM EDT 08/20/2025 2:21 PM EDT us Julio C Miller MD LAB BLOOD ORDERABLES Final Resul t Performing Organization Address City/[facility]/ZIP Co de Phone Number [facility] [address] [place] [address], [place] [phone] * (ABNORMAL) Comprehensive metabolic panel (08/20/2025 1:56 PM EDT) [facility] Sodium 138 133 - 145 mmol/L LAB CHEMISTRY METHOD 08/20/2025 2:[address] [facility] Potassium 4.5 3.5 - 5.5 mmol/L LAB CHEMISTRY METHOD 08/20/2025 2:[address] [facility] Chloride 104 96 - 110 mmol/L LAB CHEMISTRY METHOD 08/20/2025 2:[address] [facility] CO2 28 21 - 32 mmol/L LAB CHEMISTRY METHOD 08/20/2025 2:55 PM [facility] Anion Gap 6 3 - 11 LAB CHEMISTRY METHOD 08/20/2025 2:55 PM [facility] Glucose 108(H) 70 - 100 mg/dL LAB CHEMISTRY METHOD 08/20/2025 2:55 PM [facility] BUN 18 5 - 25 mg/dL LAB CHEMISTRY METHOD 08/20/2025 2:55 PM [facility] Creatinine 0.88 0.50 - 1.10 mg/dL LAB CHEMISTRY METHOD 08/20/2025 2:55 PM [facility] eGFR 64 >=60 mL/min/1. 73m2 LAB CHEMISTRY METHOD 08/20/2025 2:55 PM [facility] Comment:Calculation based on the Chronic Kidney Disease Epidemiology Collaboration (CKD-EPI) equation refit without adjustment for race. BUN/Creatinine Ratio 20.5 LAB CHEMISTRY METHOD 08/20/2025 2:55 PM [facility] Calcium 9.6 8.5 - 10.5 mg/dL LAB CHEMISTRY METHOD 08/20/2025 2:55 PM [facility] AST (SGOT) 22 10 - 42 unit/L LAB CHEMISTRY METHOD 08/20/2025 2:55 PM [facility] ALT (SGPT) 19 10 - 60 unit/L LAB CHEMISTRY METHOD 08/20/2025 2:55 PM [facility] Alkaline Phosphatase 87 42 - 121 unit/L LAB CHEMISTRY METHOD 08/20/2025 2:55 PM [facility] Total Protein 6.5 6.0 - 8.0 g/dL LAB CHEMISTRY METHOD 08/20/2025 2:55 PM [facility] Albumin 3.5 3.2 - 5.0 g/dL LAB CHEMISTRY METHOD 08/20/2025 2:[address] [facility] Total Bilirubin 0.7 0.0 - 1.4 mg/dL LAB CHEMISTRY METHOD 08/20/2025 2:[address] [facility] Blood Venous blood specimen / Unknown Venipuncture / Unknown 08/20/2025 1:56 PM EDT 08/20/2025 2:21 PM EDT us Julio C Miller MD LAB BLOOD ORDERABLES Final Resul t [facility]) [facility] [address] [place] [address], [place] [phone] * ECG 12 lead (08/20/2025 1:46 PM EDT) Ventricular Rate ECG 65 BPM GEMUSE Atrial Rate 65 BPM GEMUSE P-R Interval 152 ms GEMUSE QRS Duration 64 ms GEMUSE Q-T Interval 410 ms GEMUSE QTc 426 ms GEMUSE P Wave [place] 24 degrees GEMUSE R [place] -6 degrees GEMUSE T [place] 20 degrees GEMUSE ECG Interpretation Normal sinus rhythm Normal ECG When compared with ECG of 09-AUG-2024 10:40, No significant change was found Confirmed by Esther SANTILLAN JAMES ([id number]) on 08/21/2025 12:50:11 PM GEMUSE 08/20/2025 1:46 PM EDT 08/21/2025 12:50 PM EDT us Julio C Miller MD ECG ORDERABLES Final Result Performing Organization Address City/[facility]/ZIP Co de Phone Number GEMUSE * DXA BONE DENSITY STUDY 1+ SITS AXIAL SKEL (09/27/2018 1:31 PM EST) Anatomical Region Laterality Modality Bone Densitometr y 08/04/2018 1:39 PM EDT Narrative 09/27/2018 1:36 PM EST BONE DENSITY (DEXA) Lumbar Spine T-score is -2.4. (SD relative to 20-29 y/o adult) Z-score is 0.2. (SD relative to age matched peers) This is considered osteopenia by WHO criteria. Left Hip T-score is -1.8. Z-score is 0.5. This is considered osteopenia by WHO criteria. Left Forearm T score is -3.0. Z score is 0.0. This is considered osteoporosis. There is moderate levoscoliosis of the lumbar spine. IMPRESSION: This patient is considered to have osteoporosis by WHO criteria. [facility] Department of Internal Medicine recommends using National Osteoporosis Foundation (NOF) guidelines in treatment decisions related to osteoporosis. NOF guidelines suggest considering treatment for postmenopausal women and men aged 50 or older presenting with the following: History of hip or vertebral fracture. T-score = -2.5 (DXA) at the femoral neck, total hip, or spine, after appropriate evaluation to exclude secondary causes. Low bone mass (T-score between -1.0 and -2.5 at the femoral neck or spine) AND a 10-year probability of a hip fracture = 3% OR a 10-year probability of a major osteoporosis-related fracture = 20% based on the [place]-adapted WHO algorithm Please note that all treatment decisions require clinical judgment and consideration of individual patient factors, including patient preferences, co-morbidities, previous drug use, risk factors not captured in the FRAX model (e.g., frailty, falls, vitamin D deficiency, increased bone turnover, interval significant decline in bone density) and possible under- or over-estimation of fracture risk by FRAX. Optional alternative screening schedule based on jeny Fernández., [facility] November 27, 2011 for patients with osteopenia (based on hip BMD T-score) is as follows: * advanced osteopenia (T scores -2.00 to -2.49), BMD testing every year * moderate osteopenia (T scores -1.50 to -1.99), BMD testing every 5 years mild osteopenia or normal BMD (T scores -1.50 and higher), BMD testing every 15 years Procedure Note Deloris Arellano MD - 10/28/2022 BONE DENSITY (DEXA) Lumbar Spine T-score is -2.4. (SD relative to 20-29 y/o adult) Z-score is 0.2. (SD relative to age matched peers) This is considered osteopenia by WHO criteria. Left Hip T-score is -1.8. Z-score is 0.5. This is considered osteopenia by WHO criteria. Left Forearm T score is -3.0. Z score is 0.0. This is considered osteoporosis. There is moderate levoscoliosis of the lumbar spine. IMPRESSION: This patient is considered to have osteoporosis by WHO criteria. [facility] Department of Internal Medicine recommendsusing National Osteoporosis Foundation (NOF) guidelines in treatment decisions related toosteoporosis. NOF guidelines suggest considering treatment for postmenopausal women and menaged 50 or older presenting with the following: History of hip or vertebral fracture. T-score = -2.5 (DXA) at the femoral neck, total hip, or spine, afterappropriate evaluation to exclude secondary causes. Low bone mass (T-score between -1.0 and -2.5 at the femoral neck or spine)AND a 10-year probability of a hip fracture = 3% OR a 10-year probability of a majorosteoporosis-related fracture = 20% based on the [place]-adapted WHO algorithm Please note that all treatment decisions require clinical judgment andconsideration of individual patient factors, including patient preferences, co- morbidities,previous drug use, risk factors not captured in the FRAX model (e.g., frailty, falls, vitaminD deficiency, increased bone turnover, interval significant decline in bone density) andpossible under- or over-estimation of fracture risk by FRAX. Optional alternative screening schedule based on angie Fernández al., NEJMJanuary 2011 for patients with osteopenia (based on hip BMD T-score) is as follows: * advanced osteopenia (T scores -2.00 to -2.49), BMD testing every year * moderate osteopenia (T scores -1.50 to -1.99), BMD testing every 5years mild osteopenia or normal BMD (T scores -1.50 and higher), BMD testingevery 15 years [facility] Final Result from Last 3 Months or Most Recently Relevant to Health Maintenance Insurance MEDICARE [facility] Advance Directives Documents on File Type Date Recorded Patient Shipping Team Leader Expl anation Advance Directives and Livin g Will [facility]/18[facility] Manager Video Relationship Specialty Start Date End Date Dixon Pastrana PA [address] [place] [address] PCP - General Internal Medicine 04/26/21
--- OUTSIDE RECORDS SUMMARY | 2025-10-10 11:22 | XMS_ITS | Encounter Summary ---
Author Organization [facility] Address [address] [place] [address] Care Team Providers Care [address] Light Servicer Supervisor Name Role Phone Dixon Pastrana Primary Care Provider [phone] Encounter Details Date Type Department Care Team (Late st Contact Info) Description 10/06/2025 Results Follow-Up Adult Medicine [address] [phone] Dixon Pastrana PA [address] [place] [id number] Social History Tobacco Use Types Packs/Day Years [...] care for your loved ones. For example, childbirth and infant care teacher or elderly care for an older adult? [...] as of this encounter Progress Notes * SOLOMON Huston - 10/09/2025 4:37 PM EST Please call patient and inform her of the following: Holter monitor did not reveal any worrisome findings. She wore the Holter monitor for 16 hours. documented in this encounter Plan of Treatment Upcoming Encounters Date Type Department Care Team (Late st Contact Info) Description 01/16/2026 10:00 AM EDT Office Visit Adult [address] [phone] Dixon Pastrana PA [address] [place] [address] documented as of this encounter Visit Diagnoses Not on filedocumented in this encounter Additional Health Concerns Assessment Noted Time PHQ-9 Depression Total Score: 0 09/14/20 25 10:03 AM EST documented as of this encounter Care Teams Street Light Servicer Supervisor Relationship Specialty Start Date End Date Dixon Pastrana PA [address] [place] [id number] PCP - General Internal Medicine 04/26/21 documented as of this encounter
== END 2025-10-10 10:05 | disposition home or self-care (01) ==
LOC: HO.HAP 10:04
PROVIDERS: Visit Provider Physician Assistant Medical
DX: H90.3 Sensorineural hearing loss, bilateral (principal)
CPT/HCPCS: V5014